=== PATIENT | male | born 1975 | race Caucasian/White ===

== ENCOUNTER 2019-01-11 19:23 | Emergency (ER) | payer OTHER ==
[~2019-01-11] VITALS: Wt 63.9 kg
[2019-01-11 19:48] VITALS: BP 136/82; PULSE 109; RESP 18
--- NOTE | 2019-01-11 20:18 | ERD ---
ER Documentation Chief Complaint Chief Complaint NEEDS MED REFILL FOR DEPRESSION AND ANXIETY MEDS HPI This is a 43-year-old male who presents here to [facility] for medication refill. Stated that he ran out of medication. Patient stated he is anxious. Stated that he takes Zoloft 50 mg twice a day, Seroquel 200 mg 3 times a day. Stated that he usually takes Ativan 1 mg. Denies headache, head injury, loss of consciousness, dizziness, neck pain, neck stiffness, throat pain, difficulty swallowing, difficulty breathing lying flat, shoulder pain, chest pain, back pain, abdominal pain, nausea, vomiting, constipation, diarrhea, urinary symptoms, loss of bowel and bladder control, trauma, injury, falls, difficulty walking due to pain, numbness or tingling sensation, calf pain, recent travel, recent major surgery in the last 3 weeks, calf pain, recent long travel, recent exposure to any illness, recent antibiotic use in the last 3 months, fever, chills, seizures. Denies auditory/visual hallucination/delusions. Not suicidal. Not homicidal. Has the capacity to decide for himself. Has good support system at home. Past medical history: Anxiety. Depression. Surgical history: Social: Denies smoking, use of alcoholic beverages, use of illegal drugs. ROS All systems reviewed and are negative except as per history of present illness. Medications Home Meds Active Scripts Hydroxyzine Hcl* (Hydroxyzine Hcl*) 50 Mg Tablet, 50 MG PO Q6H PRN for ANXIETY, #30 TAB Prov:PASILABAN,KLAR F 01/11/19 Sertraline Hcl* (Zoloft*) 50 Mg Tablet, 50 MG PO DAILY, #30 TAB Prov:PASILABAN,KLAR F 01/11/19 Quetiapine Fumarate* (Seroquel*) 200 Mg Tablet, 200 MG PO BID, #60 TAB Prov:PASILABAN,KLAR F 01/11/19 Allergies Allergies: Coded Allergies: No Known Allergy (Unverified , 01/11/19) Physical Exam Vitals Vital Signs Date Temp Pulse Resp B/P (MAP) Pulse Ox O2 O2 Flow FiO2 Time Delivery Rate 01/11/19 97.8 109 18 136/82 97 19:48 (100) Physical Exam Const: No acute distress Head: Atraumatic Eyes: Normal Conjunctiva ENT: Normal External Ears, Nose and Mouth. Neck: Full range of motion. No meningismus. Resp: Clear to auscultation bilaterally Cardio: Regular rate and rhythm, no murmurs Abd: Soft, non tender, non distended. Normal bowel sounds Skin: No petechiae or rashes Back: No midline or flank tenderness Ext: No cyanosis, or edema Neur: Awake and alert. No neurological deficits. Psych: Normal Mood and Affect. Denies auditory/visual hallucinations/delusions. Not suicidal. Not homicidal. Has the capacity to decide for himself. Has good support system at home. Results 24 hrs Current Medications Medications Dose Sig/Elli Start Time Status Last (Trade) Ordered Route PRN Stop Time Admin Dose Reason Admin Lorazepam 1 mg ONCE ONCE 01/11/19 DC 01/11/19 (Ativan) PO 20:30 20:34 01/11/19 20:31 Procedures/MDM Diagnostic tests: Clinical exam. Treatment: Ativan p.o. Re-evaluation: Denies chest pain. Denies auditory/visual jeffry lucinations/delusions. Not homicidal. Not suicidal. Has the capacity to decide for himself. Has good support system at home. No neurological deficits. Stated that he will see his psychiatrist in the next few days. Differential diagnosis I have low suspicion for homicidal ideation, suicidal ideation, 5150. Final diagnosis: Medication refill. Prescription: Zoloft. Seroquel. Hydroxyzine. Follow-up with PCP in the next 24-48 hours. Follow-up with your psychiatrist in the next 24 to 48 hours. Come back here in the emergency department for any new symptoms or any worsening symptoms. All questions and concerns were answered. Patient and family members verbalized understanding and agreed with plan of care. Hemodynamically stable on discharge. Departure Diagnosis: Primary Impression: Encounter for medication refill Condition: Stable Additional Instructions: Follow-up with PCP in the next 24-48 hours. Follow-up with your psychiatrist in the next 24 to 48 hours. Come back here in the emergency department for any new symptoms or any worsening symptoms. VENKAT GRAVES January 11, 2019 20:18
[2019-01-11] MEDS ORDERED: LORAZEPAM 1 MG TAB PO ONE (20:30)
[2019-01-11] MEDS ORDERED: QUET200T PO (20:37)
[2019-01-11] MEDS ORDERED: HYDR50TA15 PO (20:38)
[2019-01-11] MEDS ORDERED: SERT50TA PO (20:38)
== END 2019-01-11 21:09 | disposition home or self-care (01) ==
LOC: FTE 19:23
DX: Z76.0 Encounter for issue of repeat prescription (principal)
CPT/HCPCS: Z7502; Z7610; 99283